=== PATIENT | female | born 1960 | race African-American/Black ===

== ENCOUNTER 2017-09-02 17:53 | Emergency (ER) | payer MEDICARE, OTHER ==
[~2017-09-02] VITALS: Ht 167.6 cm; Wt 76.2 kg
[~2017-09-02 17:53] MED LIST: BACTRIM DS TAB1 EAC1 ORAL; BACTRIM-DS1 EA ORAL; BENADRYL50 MG ORAL; CLINDAMYCIN HC300 MG ORAL; HYDROCORTISONE28 G5 TOPIC; IBUPROFEN600 MG ORAL; KEFLEX500 MG ORAL; NAPROXEN500 M1 ORAL; NEURONTIN100 MG ORAL; NKM; NORCO 5-325 TA1 EACH ORAL; ROBAXIN-750750 MG PO; VICODIN 5-5001 EACH PO
[2017-09-02] MEDS ORDERED: Methocarbamol 750mg tab ORAL ONE (18:30)
[2017-09-02] MEDS ORDERED: Ketorolac 60mg Inj IM ONE (18:30)
[2017-09-02 18:46] VITALS: BP 146/79
[2017-09-02] MEDS ORDERED: IBUPROFEN600 MG ORAL (19:01)
[2017-09-02] MEDS ORDERED: ROBAXIN-750750 MG PO (19:01)
[2017-09-02 19:10] VITALS: BP 146/79
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
== END 2017-09-02 19:12 | disposition home or self-care (01) ==
LOC: EMR 18:14
DX: S16.1XXA Strain of muscle, fascia and tendon at neck level, initial encounter (principal); S46.912A Strain of unspecified muscle, fascia and tendon at shoulder and upper arm level, left arm, initial encounter; V43.52XA Car driver injured in collision with other type car in traffic accident, initial encounter; Y92.410 Unspecified street and highway as the place of occurrence of the external cause
CPT/HCPCS: 96372; 99284